=== PATIENT | male | born 1955 | race Caucasian/White ===

== ENCOUNTER → 2017-05-14 | Outpatient (CLI) | payer BC | END | disposition home or self-care (01) | LOC: CT 13:14 | DX: I83.92 Asymptomatic varicose veins of left lower extremity (principal); M71.22 Synovial cyst of popliteal space [Baker], left knee; R60.0 Localized edema; M79.89 Other specified soft tissue disorders | CPT/HCPCS: 93971 ==

== ENCOUNTER 2017-11-10 22:20 | Emergency (ER) | payer OTHER, BC ==
[~2017-11-10] VITALS: Ht 182.9 cm; Wt 85.9 kg
[2017-11-10 22:46] VITALS: BP 127/82
== END 2017-11-10 22:54 | disposition home or self-care (01) ==
LOC: EME 22:20
DX: S60.941A Unspecified superficial injury of left index finger, initial encounter (principal); W46.0XXA Contact with hypodermic needle, initial encounter; Y99.0 Civilian activity done for income or pay